=== PATIENT | male | born 1965 | race Caucasian/White ===

== ENCOUNTER 2016-04-30 02:04 | Emergency (ER) | payer OTHER ==
[2016-04-30] MEDS ORDERED: DIPHENHYDRAMINE 50 MG/ML VIAL ONE (02:42)
[2016-04-30] MEDS ORDERED: METHYLPRED SOD SUCC 125 MG/2 ML VIAL ONE (02:42)
[2016-04-30] MEDS ORDERED: FAMOTIDINE 20 MG INJ ONE (02:43)
== END 2016-04-30 04:14 | disposition home or self-care (01) ==
LOC: ER 02:04 → MERGE 02:04 → ER 04:14
DX: L50.9 Urticaria, unspecified (principal); T78.3XXA Angioneurotic edema, initial encounter; R22.0 Localized swelling, mass and lump, head
CPT/HCPCS: 96374; 96375; 99283; J2930